=== PATIENT | male | born 1955 | race Caucasian/White ===

== ENCOUNTER 2018-09-16 09:42 | Day surgery (SDC) | payer BC ==
[~2018-09-16 09:42] MED LIST: Buffered Lidocaine 1% SYRIN* 1 ML/SYRINGE INTRADERM ONE; Famotidine IV* 10 MG/ML 2 ML (20 mg) IV ONE; Lactated Ringers 1000 ML Bag* 1,000 ML IV SCH
[2018-09-16] MEDS ORDERED: Famotidine IV* 10 MG/ML 2 ML (20 mg) ONE (12:03)
[2018-09-16] MEDS ORDERED: Benzocaine/Butamben/Tetracain (CETACAINE - SINGLE USE) 5 gm TOPICAL ONE (12:12)
[2018-09-16] MEDS ORDERED: Cisatracurium* 2 MG/ML MDV 5 ML ONE (13:08)
[2018-09-16] MEDS ORDERED: Ondansetron INJ* 2 MG/ML VIAL ONE (13:08)
[2018-09-16] MEDS ORDERED: fentaNYL* 50 MCG/ML 2 ML VIAL (100 MCG VIAL) ONE (13:08)
[2018-09-16] MEDS ORDERED: Dexamethasone IV* 4 MG/ML 1 ML (4 MG) ONE (13:08)
[2018-09-16] MEDS ORDERED: Midazolam* 1 MG/ML 5 ML VIAL (5 MG) ONE (13:08)
[2018-09-16] MEDS ORDERED: Lidocaine 2% PF * 5 ML VIAL ONE (13:08)
[2018-09-16] MEDS ORDERED: Propofol* 10 MG/ML 20 ML BTL ONE (13:08)
[2018-09-16] MEDS ORDERED: EPHEDrine (Pressors)* 50 MG/ML VIAL ONE (14:06)
[2018-09-16] MEDS ORDERED: fentaNYL* 50 MCG/ML 2 ML VIAL (100 MCG VIAL) IV PRN (14:11)
[2018-09-16] MEDS ORDERED: Ondansetron INJ* 2 MG/ML VIAL IV PRN (14:11)
[2018-09-16] MEDS ORDERED: Naloxone* 0.4 MG/ML 1 ML VIAL IV PRN (14:11)
[2018-09-16] MEDS ORDERED: Levalbuterol 0.63MG/3ML NEB* UNIT OF USE INH PRN (14:11)
[2018-09-16] MEDS ORDERED: Glycopyrrolate IV* 0.2 MG/ML 1 ML VIAL ONE (14:27)
[2018-09-16] MEDS ORDERED: Neostigmine Methylsulfate* 1 MG/ML 10 ML VIAL (1 mg/ml) ONE (14:27)
[2018-09-16 15:24] VITALS: BP 129/79
--- NOTE | 2018-09-16 15:53 | PRO ---
BRONCHOSCOPY REPORT: DATE OF PROCEDURE: 09/16/18 - [facility] PREPROCEDURAL DIAGNOSES: Head and neck cancer with PET positive lymph nodes in mediastinum and hilum. PROCEDURE PERFORMED: Bronchoscopy with endobronchial ultrasound-guided fine needle aspiration of mediastinal and hilar nodes. ANESTHESIA: General anesthesia. ANESTHESIOLOGIST: Dr. Orellana. DESCRIPTION OF PROCEDURE: Informed consent was obtained from the patient prior to the procedure after all the risks and benefits were thoroughly explained. Appropriate time-out was performed and agreed on by the attending staff. A flexible Olympus bronchoscope was inserted through ET tube for airway inspection. ET tube positioning was confirmed to be 2 cm above the level of angela. No endobronchial lesions were noted. Thin secretions were noted and were suctioned out. Bronchoscope was then withdrawn and EBUS bronchoscope was inserted. R4 lymph node was measuring about 7 mm and was accessed with 2 passes. Rapid onsite evaluation revealed lymphatic tissue with no malignant cells. R12 was then accessed with 2 passes. Rapid onsite evaluation revealed lymphatic tissue with no malignant cells. L10 was then accessed with 2 passes as well. Rapid onsite evaluation revealed lymphatic tissue with no malignant cells. L12 was also accessed with 3 passes. Rapid onsite evaluation revealed lymphatic tissue in second and third passes. The patient tolerated the procedure well. Bronchoscope was then withdrawn as no other lymph nodes were significantly enlarged. The patient was seen in Recovery in optimal condition. [id number]/CPS #: [id number] MTDD
== END 2018-09-16 15:38 | disposition home or self-care (01) ==
LOC: OR 09:42
PROVIDERS: ATTEND Internal Medicine
DX: R59.0 Localized enlarged lymph nodes (principal); C76.0 Malignant neoplasm of head, face and neck; E04.1 Nontoxic single thyroid nodule; Z85.828 Personal history of other malignant neoplasm of skin; Z87.891 Personal history of nicotine dependence
CPT/HCPCS: 88172; 88173; 88177; 88305; J1100; J2250; J2405; J2704; J2710; J3010

== ENCOUNTER 2018-10-07 07:58 | Observation (INO) | payer BC ==
[2018-10-07] MEDS ORDERED: Midazolam* 1 MG/ML 10 ML VIAL (10 MG) ONE (08:37)
[2018-10-07] MEDS ORDERED: fentaNYL* 50 MCG/ML 2 ML VIAL (100 MCG VIAL) ONE (08:37)
[2018-10-07] MEDS ORDERED: ceFAZolin 2 GM in NS PREMIX(*) 2 GM/100 ML BAG IVPB ONE (08:38)
--- NOTE | 2018-10-07 11:07 | PRO ---
CC: Dr. Hamilton* PROCEDURE REPORT: DATE OF PROCEDURE: 10/07/18 - inpatient, room 402-01 PROCEDURE: EGD with PEG tube placement. INDICATION: Head and neck cancer. REFERRING PHYSICIAN: Dr. Hamilton. MEDICATIONS GIVEN: 1. 2 g IV cefazolin. 2. 75 mcg IV fentanyl. 3. 10 mg IV Versed. PROCEDURE IN DETAIL: After the EGD procedure, including the risks, benefits, and alternatives, not limited to perforation, surgery, infection, and/or were explained to the patient, written consent was then obtained. IV medication was given and a bite block was placed between the teeth. An Olympus gastroscope was advanced through the patient's mouth, down the esophagus, into the stomach, into the distal duodenum. In the esophagus at the GE junction, the Z-line was intact. There was a small hiatal hernia. The scope was advanced through the GE junction into the body of the stomach. Retroflex view was unremarkable. Forward view also was unremarkable. Scope was advanced through a widely patent pylorus into the duodenal bulb into the distal duodenum, both of which were unremarkable. Scope was then withdrawn into the stomach and insufflated air to inflate the stomach. I then used finger indentation in his left upper quadrant below his lower most rib approximately 5 fingerbreadths, 5 fingerbreadths to the left side to find a position suitable for the PEG tube placement. The initial position at that location, the finger indentation was not very good. I did move more medially and the finger indentation was much better. I then cleaned up the skin very well with Betadine solution. I then used the small finder needle to anesthetize the skin. The finder needle was easily inserted through the patient's abdominal wall and I did see the needle come through into the gastric lumen on the first pass. The needle did go all the way up to the hub. I then withdrew that needle and made a small incision on the same location. A larger trocar needle was then placed through the abdominal wall. The initial pass did not come into the gastric lumen. I repositioned the needle more towards his head and the needle was inserted again. I did see it skirt just underneath the mucosa of the stomach. I could see it tenting up the stomach mucosa. I then withdrew that needle used the fine finder needle again, and again seem tract easily inserted right into the gastric lumen. I then used the trocar needle and at that time it is easily inserted into the gastric lumen. The blue wire was placed through the trocar and was grasped with snare. The blue wire was withdrawn from the patient. The PEG tube was then tied on to the end of the blue wire and then the PEG tube was successfully pulled into place. A second look endoscopy did confirm successful placement within the gastric lumen of the PEG tube bumper. The scope was withdrawn from the patient. He tolerated the procedure well and will be admitted to the hospital as per my typical routine. IMPRESSION: 1. Complete upper endoscopy into the distal duodenum with successful PEG tube placement. 2. Successful PEG tube placement. The patient will be admitted for a 23-hour OBV as per my typical routine. [id number]/CPS #: [id number] MTDD
[2018-10-07] MEDS ORDERED: HYDROmorphone INJ1* 1 MG/ML SYRINGE ONE (11:09)
[2018-10-07] MEDS ORDERED: Ondansetron INJ* 2 MG/ML VIAL IV PRN (11:16)
[2018-10-07] MEDS ORDERED: Acetaminophen TAB* 325 MG PO PRN (11:16)
[2018-10-07] MEDS ORDERED: Morphine INJ* 2 MG/ML 1 ML SYRINGE (TWO MG - NEW SYRINGE VERSION) IV PRN (11:16)
--- NOTE | 2018-10-07 12:10 | HP ---
ADMISSION HISTORY AND PHYSICAL: DATE OF ADMISSION: 10/07/18 This is a 23-hour observation for PEG tube, status post PEG tube placement. ADMITTING PHYSICIAN: Ac Hyde MD NARRATIVE: Mr. De La Torre is a very pleasant 62-year-old gentleman who has a history of head and neck cancer, specifically tongue cancer, who I saw in the office couple of weeks ago. He started chemotherapy and radiation therapy last week. We had a long discussion regarding PEG tube placement. He understands the rationale behind it. He understands the risks, benefits, and alternatives and agrees to proceed. PAST MEDICAL HISTORY: Significant for: 1. Tongue cancer. 2. Hernia repair in 2009. MEDICATIONS: Include multivitamin. ALLERGIES: He has no no known drug allergies. FAMILY HISTORY: No family history of GI malignancy. SOCIAL HISTORY: He recently quit smoking. He does drink 16 ounces of alcohol, namely beer, per day and 2 cups of coffee. REVIEW OF SYSTEMS: Twelve systems were reviewed and that mentioned in the HPI were unremarkable. PHYSICAL EXAMINATION GENERAL: Well-appearing male, in no apparent distress. Alert, oriented, pleasant, fluent. VITAL SIGNS: Within normal limits. HEENT: Mucous membranes are moist without lesions, ulcers, or exudate. NECK: Supple. Trachea is midline. LUNGS: Clear to auscultation. HEART: Regular rate and rhythm. ABDOMEN: Positive bowel sounds, soft, nontender, nondistended. No abdominal scars. SKIN: Warm and dry. ASSESSMENT AND PLAN: This is a pleasant 62-year-old gentleman with tongue cancer, who is undergoing radiation and chemotherapy. He just underwent a successful PEG tube placement. He is doing well at this point. He was having pain at the incision site. He rated 6/10. His abdominal exam at that time was unremarkable as the pain elsewhere except for just at the incision site. His abdomen is soft at this point. He did receive 1 mg of Dilaudid and within 5 minutes, he rated his pain as 0. He denies any nausea. No vomiting. He will be admitted to the hospital as per my usual routine and protocol after a PEG tube placement. He will have Nutritional consult and PEG tube teaching by the team. By the nursing staff, he will have pain control, nausea medicine, and fluids. He can have ice chips until tomorrow morning. Tomorrow morning, he should be evaluated by GI for discharge. He is safe to go to radiation therapy later on today. I will follow up with the patient later on today. [id number]/CPS #: [id number] MTDCarrol
[2018-10-07 12:33] LABS: ABS Lymphocytes 0.6 10^3/ul (1.0-4.8); ABS Monocytes 0.5 10^3/ul (0-0.8); ABS Neutrophils 6.2 10^3/ul (1.5-7.7); Eosinophil % 0.5 %; Hematocrit 41 % (42-52); Lymphocyte % 7.5 %; Mean Corpuscular HGB Conc 34 g/dL (31-36); Mean Corpuscular Hemoglobin 30 pg (27-31); Mean Corpuscular Volume 89 fL (80-94); Mean Platelet Volume 7.1 fL (7.4-10.4); Nucleated Red Blood Cells % 0.1; Platelet Count 202 10^3/uL (150-450); Red Blood Count 4.67 10^6 /uL (4.18-5.48); Red Cell Distribution Width 13 % (10-15); White Blood Count 7.3 10^3/uL (3.5-10.8)
[2018-10-07] MEDS: NS 0.9% 1000 ML** 1,000 ML IV SCH (12:44)
--- NOTE | 2018-10-07 17:40 | PN ---
Progress Note - Progress Note Date of Service: 10/07/18 Note: POST PEG CHECK pt doing well, pain at incision site, 5/10; pain meds help, now 0/10 VSS hypoactive but present BS, soft, non-tender at sides, tender over dressing labs noted Post peg ---pain control ---appreciate nutrition consult ---Peg teaching in am; if stable can dc; ---please call Dr Moreno at [phone] Thursday am for discharge Ac Hyde [facility] [phone]
[2018-10-08] MEDS: NS 0.9% 1000 ML** 1,000 ML IV SCH (01:43)
[2018-10-08 08:47] VITALS: BP 130/73
--- NOTE | 2018-10-08 22:34 | DS ---
CC: Dr. Yosef Hamilton; Dr. Ac Hyde; Dr. Emery * DISCHARGE SUMMARY: DATE OF ADMISSION: 10/07/18 DATE OF DISCHARGE: 10/08/18 PRIMARY CARE PROVIDER: Dr. Yosef Hamilton. PRIMARY ONCOLOGIST AND ATTENDING PHYSICIAN: Dr. Shamar King.* (DICTATED BY ADELIA KHAN) IOS ARCHITECT: Dr. Ac Hyde. PRIMARY DISCHARGE DIAGNOSES: 1. Head and neck cancer, undergoing concurrent chemotherapy and radiation. 2. Status post PEG tube placement. DISCHARGE MEDICATIONS: Multivitamin. HOSPITAL IMAGING: None. HOSPITAL COURSE: This is a 62-year-old gentleman with head and neck cancer, currently 2 weeks into concurrent chemotherapy and radiation, who underwent anticipatory PEG tube placement on 10/07/[address] Hyde. This was uncomplicated and the patient tolerated well. He remained in the hospital for a period of observation without any complications noted. At the time of this hospitalization, he is still able to eat and drink without any swallowing difficulties. He received tube feeding education from nursing staff prior to discharge and met with the dietitian. Tube feedings will be used as a supplement in the future if swallowing becomes more difficult with subsequent treatment. DISPOSITION AND FOLLOWUP PLAN: The patient is being discharged to home in stable condition. He will follow up with oncology clinic on 10/11/18 and continue concurrent therapy. ADELIA KHAN [id number]/[facility] #: [id number] [facility]
== END 2018-10-08 12:55 | disposition home or self-care (01) ==
LOC: ENDO 07:58 → MED 10:29
PROVIDERS: ADMIT Internal Medicine Gastroenterology; ATTEND Internal Medicine Hematology & Oncology
DX: C09.0 Malignant neoplasm of tonsillar fossa (principal); R13.10 Dysphagia, unspecified; Z79.899 Other long term (current) drug therapy
CPT/HCPCS: 36415; 77386; 85025; 96361; 96374; 96375; 99156; 99157; 99217; G0378; J0690; J1170; J2250; J2270; J2405; J3010